=== PATIENT | male | born 1990 | race Caucasian/White ===

== ENCOUNTER 2022-04-16 11:19 | Emergency (ER) | payer SELFPAY ==
[2022-04-16] MEDS ORDERED: Sodium Chloride 0.9% 1,000 ML IV ONE (12:02)
[2022-04-16] MEDS ORDERED: Morphine 4 MG/ML Syringe IVPUSH ONE (12:02)
[2022-04-16] MEDS ORDERED: Ondansetron 4 MG/2 ML SDV IVPUSH ONE (12:02)
[2022-04-16 13:06] LABS: CARBON DIOXIDE,CO2 27.7 mmol/L (21.0-32.0); POTASSIUM,K 3.9 mmol/L (3.5-5.1)
== END 2022-04-16 13:51 | disposition home or self-care (01) ==
LOC: MW.ED 11:19
DX: R10.11 Right upper quadrant pain (principal); F17.210 Nicotine dependence, cigarettes, uncomplicated
CPT/HCPCS: 36415; 76705; 80053; 81003; 83690; 85025; 96361; 96374; 96375; 99284; J2270; J2405; J7030

== ENCOUNTER 2022-09-20 16:27 | Emergency (ER) | payer SELFPAY | END 2022-09-20 17:07 | disposition home or self-care (01) | LOC: MW.ED 16:27 | DX: R10.10 Upper abdominal pain, unspecified (principal); Z72.0 Tobacco use | CPT/HCPCS: 99283 ==